=== PATIENT | male | born 1940 | race Two or more races ===

== ENCOUNTER 2023-08-01 11:39 | Inpatient (IN) | payer OTHER ==
[~2023-08-01] VITALS: Ht 167.6 cm; Wt 105.6 kg
[2023-08-01] MEDS ORDERED: SODIUM CHLORIDE 0.9% 500 ML IVB ONE (12:00)
[2023-08-01 12:23] LABS: Basophils # (auto) 0 10 ^3/uL (0-0.2); Basophils % (auto) 0.3 % (0.0-2.0); Eosinophils # (auto) 0 10 ^3/uL (0-0.8); Hematocrit 41.1 % (41.0-53.0); Hemoglobin 13.9 g/dL (13.5-17.5); Lymphocytes # (auto) 0.8 10 ^3/uL (0.4-5.4); Lymphocytes % (auto) 6.2 % (10.0-50.0); Mean Corpuscular Hgb Conc. 33.8 g/dL (32.0-36.0); Mean Corpuscular Volume 91.8 fL (80.0-100.0); Monocytes % (auto) 7.6 % (0.0-12.0); Neutrophils % (auto) 85.9 % (37.0-80.0); Red Blood Cells 4.48 10^6/uL (4.5-5.90); Red Cell Distribution Width 14.4 % (11.8-14.3); White Blood Cell 12.8 10^3/uL (4.4-10.8)
[2023-08-01 12:37] LABS: INR 1.19 (0.9-1.15); Partial Thromboplastin Time 29.6 SEC (24.5-34.5); Prothrombin Time 12.4 sec (9.3-11.8)
[2023-08-01 12:42] LABS: Alanine Aminotransferase 19 U/L (7-40); Albumin 3.8 g/dL (3.2-4.8); Alkaline Phosphatase 89 U/L (46-116); Anion Gap 7 (5-15); Aspartate Aminotransferase 16 U/L (13-40); BUN/Creatinine Ratio 13.3 (10.0-20.0); Blood Urea Nitrogen 13 mg/dL (9-23); Calcium 8.7 mg/dL (8.7-10.4); Carbon Dioxide 25 mmol/L (20-30); Chloride 101 mmol/L (98-107); Glucose 96 mg/dL (74-106); Lipase 38 U/L (12-53); Magnesium 1.8 mg/dL (1.6-2.6); Potassium 4.1 mmol/L (3.5-5.1); Sodium 133 mmol/L (136-145); Total Protein 7.3 g/dL (5.7-8.2)
[2023-08-01] MEDS ORDERED: metroNIDAZOLE 500MG/100ML 100 ML IV ONE (17:15)
[2023-08-01] MEDS ORDERED: KETOROLAC TROMETH 30 MG/ML 1ML VIAL IV ONE (17:15)
[2023-08-01] MEDS ORDERED: SODIUM CHLORIDE 0.9% 1,000 ML IV ONE (17:15)
[2023-08-01] MEDS ORDERED: cefTRIAXone 1GM/50ML D5W 50 ML IV ONE (17:15)
[2023-08-01] MEDS ORDERED: DOCUSATE SOD 100 MG CAP PO PRN (17:15)
[2023-08-01] MEDS ORDERED: FAMO20TA10 PO (17:18)
[2023-08-01] MEDS ORDERED: BENZ100C97 PO (17:18)
[2023-08-01] MEDS ORDERED: NITR100C6 PO (17:18)
[2023-08-01] MEDS ORDERED: ATOR10TA52 PO (17:18)
[2023-08-01] MEDS ORDERED: SILD100T73 PO (17:18)
[2023-08-01] MEDS ORDERED: AMLO1TAB22 PO (17:18)
[2023-08-01] MEDS ORDERED: BENA-36 PO (17:18)
[2023-08-01] MEDS ORDERED: TAMS0.4C36 PO (17:18)
[2023-08-01] MEDS ORDERED: PANTOPRAZOLE 40 MG/10 ML VIAL INJ IV ONE (18:15)
[2023-08-01] MEDS: ACETAMINOPHEN 325 MG TAB PO PRN (21:56)
[2023-08-01] MEDS ORDERED: FAMOTIDINE 20 MG TAB PO SCH (22:00)
[2023-08-02] MEDS: metroNIDAZOLE 500MG/100ML 100 ML IV SCH ×3 (00:43→21:37)
[2023-08-02] MEDS: SODIUM CHLORIDE 0.9% 1,000 ML IV SCH ×2 (01:36→09:55)
[2023-08-02 04:10] VITALS: PULSE 86; RESP 20; O2SAT 93
[2023-08-02] MEDS: MORPHINE SULFATE INJ 2 MG/ml SYRG IV PRN (05:42)
[2023-08-02 06:51] LABS: Alanine Aminotransferase 18 U/L (7-40); Alkaline Phosphatase 101 U/L (46-116); Anion Gap 7 (5-15); Blood Urea Nitrogen 11 mg/dL (9-23); Calcium 8.8 mg/dL (8.7-10.4); Carbon Dioxide 24 mmol/L (20-30); Chloride 103 mmol/L (98-107); Glucose 86 mg/dL (74-106); Potassium 3.8 mmol/L (3.5-5.1); Sodium 134 mmol/L (136-145)
[2023-08-02 06:52] LABS: Albumin 3.9 g/dL (3.2-4.8); Aspartate Aminotransferase 18 U/L (13-40); Bilirubin, Total 0.9 mg/dL (0.2-1.0); Total Protein 8.1 g/dL (5.7-8.2)
[2023-08-02 06:57] LABS: Basophils # (auto) 0 10 ^3/uL (0-0.2); Basophils % (auto) 0.2 % (0.0-2.0); Eosinophils # (auto) 0 10 ^3/uL (0-0.8); Eosinophils % (auto) 0.1 % (0.0-7.0); Hematocrit 42.1 % (41.0-53.0); Hemoglobin 14.2 g/dL (13.5-17.5); Lymphocytes # (auto) 0.9 10 ^3/uL (0.4-5.4); Lymphocytes % (auto) 7.1 % (10.0-50.0); Mean Corpuscular Hemoglobin 30.9 pg (28.0-32.0); Mean Corpuscular Hgb Conc. 33.8 g/dL (32.0-36.0); Mean Corpuscular Volume 91.6 fL (80.0-100.0); Monocytes % (auto) 7.7 % (0.0-12.0); Neutrophils # (auto) 10.5 10 ^3/uL (1.6-8.6); Neutrophils % (auto) 84.9 % (37.0-80.0); Red Cell Distribution Width 14.7 % (11.8-14.3); White Blood Cell 12.4 10^3/uL (4.4-10.8)
[2023-08-02] MEDS: cefTRIAXone 1GM/50ML D5W 50 ML IV SCH (09:00)
[2023-08-02] MEDS: PANTOPRAZOLE 40 MG/10 ML VIAL INJ IV SCH (09:36)
[2023-08-02] MEDS: ATORVASTATIN 20 MG TAB PO SCH (09:37)
[2023-08-02] MEDS: amLODIPine BESYLATE 5 MG TAB PO SCH (09:37)
[2023-08-02] MEDS ORDERED: ENOXAPARIN SOD 40 MG/0.4 ML SYRINGE SC SCH (10:00)
[2023-08-02 10:24] LABS: Urine Bacteria NONE SEEN /hpf (None Seen); Urine Blood Negative /uL (Negative); Urine Clarity Clear (Clear); Urine Color Yellow (Yellow); Urine Protein, UAD TRACE (Negative); Urine Specific Gravity 1.017 (1.001-1.035); Urine Urobilinogen Normal (Negative); Urine WBC 1 /hpf (0 - 3)
[2023-08-02 13:00] VITALS: BP 148/91; PULSE 95; RESP 18; TEMP 97.8; O2SAT 95
[2023-08-02] MEDS ORDERED: MORPHINE SULFATE INJ 2 MG/ml SYRG IV ONE ×2 (15:30→16:00)
[2023-08-02 16:39] VITALS: BP 139/87; PULSE 91; RESP 19; TEMP 98.6; O2SAT 95
[2023-08-02] MEDS: TAMSULOSIN HYDROCHLORIDE 0.4 MG CAP PO SCH (18:00)
[2023-08-02] MEDS: HYDROcodone-ACET 5/325MG TAB PO PRN (21:36)
[2023-08-02 22:00] VITALS: BP 146/89; PULSE 83; RESP 19; TEMP 98.6; O2SAT 99
[2023-08-03] MEDS: SODIUM CHLORIDE 0.9% 1,000 ML IV SCH ×2 (02:35→06:20)
[2023-08-03 05:00] VITALS: BP 109/73; PULSE 93; RESP 19; TEMP 97.9; O2SAT 97
[2023-08-03] MEDS: metroNIDAZOLE 500MG/100ML 100 ML IV SCH ×3 (06:12→22:01)
[2023-08-03 06:19] LABS: Basophils # (auto) 0 10 ^3/uL (0-0.2); Basophils % (auto) 0.2 % (0.0-2.0); Eosinophils # (auto) 0 10 ^3/uL (0-0.8); Eosinophils % (auto) 0.1 % (0.0-7.0); Hematocrit 37.3 % (41.0-53.0); Hemoglobin 12.9 g/dL (13.5-17.5); Lymphocytes # (auto) 0.9 10 ^3/uL (0.4-5.4); Lymphocytes % (auto) 9.6 % (10.0-50.0); Mean Corpuscular Hemoglobin 31.5 pg (28.0-32.0); Mean Corpuscular Hgb Conc. 34.4 g/dL (32.0-36.0); Mean Corpuscular Volume 91.6 fL (80.0-100.0); Monocytes # (auto) 0.7 10 ^3/uL (0-1.3); Monocytes % (auto) 7.8 % (0.0-12.0); Neutrophils # (auto) 7.4 10 ^3/uL (1.6-8.6); Neutrophils % (auto) 82.3 % (37.0-80.0); Red Blood Cells 4.08 10^6/uL (4.5-5.90); Red Cell Distribution Width 14.3 % (11.8-14.3)
[2023-08-03 06:44] LABS: Alanine Aminotransferase 16 U/L (7-40); Albumin 3.3 g/dL (3.2-4.8); Alkaline Phosphatase 100 U/L (46-116); Anion Gap 6 (5-15); BUN/Creatinine Ratio 13.7 (10.0-20.0); Blood Urea Nitrogen 13 mg/dL (9-23); Calcium 8.3 mg/dL (8.7-10.4); Carbon Dioxide 25 mmol/L (20-30); Chloride 104 mmol/L (98-107); Glucose 72 mg/dL (74-106); Lipase 43 U/L (12-53); Magnesium 1.7 mg/dL (1.6-2.6); Potassium 4.1 mmol/L (3.5-5.1); Sodium 135 mmol/L (136-145)
[2023-08-03 06:45] LABS: Aspartate Aminotransferase 15 U/L (13-40); Bilirubin, Total 0.9 mg/dL (0.2-1.0); Total Protein 6.5 g/dL (5.7-8.2)
[2023-08-03 06:49] LABS: INR 1.26 (0.9-1.15); Partial Thromboplastin Time 32.1 SEC (24.5-34.5)
[2023-08-03 07:18] LABS: Cholesterol 98 mg/dL (< 200)
[2023-08-03 07:19] LABS: HDL Cholesterol 33 mg/dL (40-59); LDL Cholesterol 52 mg/dL (< 100); Triglycerides 54 mg/dL (< 150)
[2023-08-03 08:00] VITALS: PULSE 68; RESP 18; O2SAT 96
[2023-08-03 08:46] VITALS: BP 107/72; PULSE 95; RESP 20; TEMP 98.6; O2SAT 97
[2023-08-03] MEDS: PANTOPRAZOLE 40 MG/10 ML VIAL INJ IV SCH (09:34)
[2023-08-03] MEDS: cefTRIAXone 1GM/50ML D5W 50 ML IV SCH (09:34)
[2023-08-03] MEDS: amLODIPine BESYLATE 5 MG TAB PO SCH (09:35)
[2023-08-03] MEDS: MORPHINE SULFATE INJ 2 MG/ml SYRG IV PRN (09:36)
[2023-08-03] MEDS: ATORVASTATIN 20 MG TAB PO SCH (10:00)
[2023-08-03] MEDS ORDERED: ceFAZolin 2 GM/D5W100ml 100 ML IV ONE (13:34)
[2023-08-03] MEDS ORDERED: SUCCINYLCHOLINE CHLORIDE 20 MG/ML 10ML VIAL IV ONE (14:45)
[2023-08-03] MEDS ORDERED: fentaNYL CITRATE 100 MCG/2 ML VL ONE (14:48)
[2023-08-03] MEDS ORDERED: ROCURONIUM 10MG/ML 10ML VIAL IV ONE (15:00)
[2023-08-03] MEDS ORDERED: DexAMETHasone SOD PHOS 10MG/1ML VIAL INJ ONE (15:28)
[2023-08-03] MEDS ORDERED: ONDANSETRON HCL 4 MG/2 ML VIAL ONE (15:28)
[2023-08-03] MEDS ORDERED: SUGAMMADEX 200mg/2ml Vial (100MG/ML) IV ONE (15:42)
[2023-08-03] MEDS ORDERED: ONDANSETRON HCL 4 MG/2 ML VIAL IV PRN ×2 (15:45→16:00)
[2023-08-03] MEDS ORDERED: MIDAZOLAM HCL 2MG/2ML 2ml VIAL (1mg/ml) IV PRN (16:00)
[2023-08-03] MEDS ORDERED: ePHEDrine SULFATE 50 MG/ML AMP IV PRN (16:00)
[2023-08-03] MEDS ORDERED: LABETALOL HCL 5 MG/ML 4ML SYRINGE IV PRN (16:00)
[2023-08-03] MEDS ORDERED: MORPHINE SULFATE 4 MG/ML SYR/VIAL IV PRN (16:00)
[2023-08-03 16:04] VITALS: RESP 17; O2SAT 98
[2023-08-03] MEDS: HYDROmorphone HCL 2 MG/ML VL/or syr IV PRN ×4 (16:15→16:45)
[2023-08-03] MEDS: TAMSULOSIN HYDROCHLORIDE 0.4 MG CAP PO SCH (18:06)
[2023-08-03 22:00] VITALS: BP 104/70; PULSE 89; RESP 16; TEMP 97.7; O2SAT 93
[2023-08-04 05:00] VITALS: BP 100/67; PULSE 81; RESP 16; TEMP 98; O2SAT 95
[2023-08-04 05:20] LABS: Basophils # (auto) 0 10 ^3/uL (0-0.2); Eosinophils # (auto) 0 10 ^3/uL (0-0.8); Hematocrit 37.6 % (41.0-53.0); Lymphocytes # (auto) 0.4 10 ^3/uL (0.4-5.4); Lymphocytes % (auto) 4.3 % (10.0-50.0); Mean Corpuscular Hemoglobin 31.7 pg (28.0-32.0); Mean Corpuscular Hgb Conc. 34.6 g/dL (32.0-36.0); Mean Corpuscular Volume 91.5 fL (80.0-100.0); Monocytes # (auto) 0.2 10 ^3/uL (0-1.3); Monocytes % (auto) 2.6 % (0.0-12.0); Neutrophils # (auto) 7.8 10 ^3/uL (1.6-8.6); Neutrophils % (auto) 93.1 % (37.0-80.0); Red Cell Distribution Width 14.2 % (11.8-14.3); White Blood Cell 8.4 10^3/uL (4.4-10.8)
[2023-08-04 05:39] LABS: Alanine Aminotransferase 32 U/L (7-40); Albumin 3.4 g/dL (3.2-4.8); Alkaline Phosphatase 155 U/L (46-116); Anion Gap 8 (5-15); Aspartate Aminotransferase 42 U/L (13-40); Blood Urea Nitrogen 20 mg/dL (9-23); Calcium 8.3 mg/dL (8.7-10.4); Carbon Dioxide 22 mmol/L (20-30); Chloride 105 mmol/L (98-107); Glucose 115 mg/dL (74-106); Magnesium 1.8 mg/dL (1.6-2.6); Potassium 4.2 mmol/L (3.5-5.1); Sodium 135 mmol/L (136-145)
[2023-08-04 05:40] LABS: Bilirubin, Total 0.5 mg/dL (0.2-1.0); Total Protein 6.8 g/dL (5.7-8.2)
[2023-08-04] MEDS: metroNIDAZOLE 500MG/100ML 100 ML IV SCH ×3 (06:27→20:45)
[2023-08-04 08:00] VITALS: PULSE 72; RESP 18; O2SAT 94
[2023-08-04 08:49] VITALS: BP 103/61; PULSE 72; RESP 20; TEMP 97.7; O2SAT 93
[2023-08-04] MEDS: PANTOPRAZOLE 40 MG/10 ML VIAL INJ IV SCH (09:40)
[2023-08-04] MEDS: cefTRIAXone 1GM/50ML D5W 50 ML IV SCH (09:40)
[2023-08-04] MEDS: amLODIPine BESYLATE 5 MG TAB PO SCH (09:41)
[2023-08-04] MEDS: ATORVASTATIN 20 MG TAB PO SCH (09:41)
[2023-08-04] MEDS: HYDROcodone-ACET 5/325MG TAB PO PRN ×2 (09:42→17:19)
[2023-08-04 12:40] VITALS: BP 80/52; PULSE 84; RESP 20; TEMP 98.3; O2SAT 92
[2023-08-04] MEDS: SODIUM CHLORIDE 0.9% 1,000 ML IV SCH (13:28)
[2023-08-04] MEDS: TAMSULOSIN HYDROCHLORIDE 0.4 MG CAP PO SCH (17:18)
[2023-08-04 19:30] VITALS: PULSE 81; RESP 19; O2SAT 97
[2023-08-04] MEDS: ACETAMINOPHEN 325 MG TAB PO PRN (20:46)
[2023-08-04 22:00] VITALS: BP 128/74; PULSE 68; RESP 14; TEMP 98.5; O2SAT 96
[2023-08-05] MEDS: SODIUM CHLORIDE 0.9% 1,000 ML IV SCH ×2 (04:35→22:04)
[2023-08-05 05:00] VITALS: BP 124/76; PULSE 79; RESP 18; TEMP 98.1; O2SAT 96
[2023-08-05] MEDS: metroNIDAZOLE 500MG/100ML 100 ML IV SCH ×3 (06:00→22:04)
[2023-08-05 07:30] VITALS: BP 103/61; TEMP 36.7
[2023-08-05 07:43] LABS: Basophils # (auto) 0 10 ^3/uL (0-0.2); Basophils % (auto) 0.1 % (0.0-2.0); Eosinophils # (auto) 0 10 ^3/uL (0-0.8); Hematocrit 29.3 % (41.0-53.0); Hemoglobin 9.8 g/dL (13.5-17.5); Lymphocytes # (auto) 0.5 10 ^3/uL (0.4-5.4); Lymphocytes % (auto) 4.9 % (10.0-50.0); Mean Corpuscular Hemoglobin 30.8 pg (28.0-32.0); Mean Corpuscular Hgb Conc. 33.7 g/dL (32.0-36.0); Mean Corpuscular Volume 91.6 fL (80.0-100.0); Monocytes # (auto) 0.4 10 ^3/uL (0-1.3); Neutrophils # (auto) 9.6 10 ^3/uL (1.6-8.6); Red Blood Cells 3.19 10^6/uL (4.5-5.90); Red Cell Distribution Width 14.1 % (11.8-14.3); White Blood Cell 10.5 10^3/uL (4.4-10.8)
[2023-08-05 08:01] LABS: Anion Gap 8 (5-15); Carbon Dioxide 20 mmol/L (20-30); Chloride 111 mmol/L (98-107); Potassium 3.3 mmol/L (3.5-5.1); Sodium 139 mmol/L (136-145)
[2023-08-05 08:02] LABS: Calcium 6.7 mg/dL (8.5-10.1)
[2023-08-05 08:07] LABS: BUN/Creatinine Ratio 19.5 (10.0-20.0); Blood Urea Nitrogen 15 mg/dL (9-23); Glucose 92 mg/dL (74-106)
[2023-08-05 09:00] VITALS: BP 118/64; PULSE 71; RESP 18; TEMP 97.6; O2SAT 98
[2023-08-05] MEDS: cefTRIAXone 1GM/50ML D5W 50 ML IV SCH (09:44)
[2023-08-05] MEDS: PANTOPRAZOLE 40 MG/10 ML VIAL INJ IV SCH (09:44)
[2023-08-05] MEDS ORDERED: POTASSIUM EFFERVESENT TAB 25 MEQ PO ONE (09:45)
[2023-08-05] MEDS: ACETAMINOPHEN 325 MG TAB PO PRN (09:45)
[2023-08-05] MEDS: amLODIPine BESYLATE 5 MG TAB PO SCH (09:45)
[2023-08-05] MEDS: ATORVASTATIN 20 MG TAB PO SCH (09:46)
[2023-08-05 13:00] VITALS: BP 115/70; PULSE 64; RESP 16; TEMP 98.2; O2SAT 97
[2023-08-05 17:00] VITALS: BP 122/68; PULSE 63; RESP 18; TEMP 97.6; O2SAT 99
[2023-08-05] MEDS: TAMSULOSIN HYDROCHLORIDE 0.4 MG CAP PO SCH (17:57)
[2023-08-05 22:00] VITALS: BP 110/74; PULSE 76; RESP 18; TEMP 98.3; O2SAT 97
[2023-08-06 05:00] VITALS: BP 131/85; PULSE 72; RESP 19; TEMP 98.4; O2SAT 97
[2023-08-06 05:49] LABS: Basophils # (auto) 0 10 ^3/uL (0-0.2); Basophils % (auto) 0.2 % (0.0-2.0); Eosinophils # (auto) 0 10 ^3/uL (0-0.8); Eosinophils % (auto) 0.2 % (0.0-7.0); Hematocrit 32.8 % (41.0-53.0); Hemoglobin 11.1 g/dL (13.5-17.5); Lymphocytes # (auto) 1.3 10 ^3/uL (0.4-5.4); Lymphocytes % (auto) 21.9 % (10.0-50.0); Mean Corpuscular Hgb Conc. 33.7 g/dL (32.0-36.0); Mean Corpuscular Volume 91.9 fL (80.0-100.0); Monocytes # (auto) 0.5 10 ^3/uL (0-1.3); Monocytes % (auto) 8.9 % (0.0-12.0); Neutrophils # (auto) 4.1 10 ^3/uL (1.6-8.6); Neutrophils % (auto) 68.8 % (37.0-80.0); Nucleated Red Blood Cells % 0.1 %; Red Blood Cells 3.57 10^6/uL (4.5-5.90); Red Cell Distribution Width 14.8 % (11.8-14.3)
[2023-08-06 06:06] LABS: Anion Gap 5 (5-15); Carbon Dioxide 25 mmol/L (20-30); Chloride 108 mmol/L (98-107); Potassium 4.2 mmol/L (3.5-5.1); Sodium 138 mmol/L (136-145)
[2023-08-06 06:07] LABS: Calcium 8.1 mg/dL (8.7-10.4)
[2023-08-06 06:12] LABS: BUN/Creatinine Ratio 15.4 (10.0-20.0); Blood Urea Nitrogen 12 mg/dL (9-23); Glucose 90 mg/dL (74-106)
[2023-08-06] MEDS: metroNIDAZOLE 500MG/100ML 100 ML IV SCH ×2 (06:28→14:00)
[2023-08-06 07:30] VITALS: BP 118/64; TEMP 36.9
[2023-08-06 08:00] VITALS: PULSE 87; RESP 18; O2SAT 97
[2023-08-06 08:48] VITALS: BP_SYST 116; BP_SYST 138; BP_DIAS 75; BP_DIAS 81; PULSE 52; PULSE 87; RESP 16; RESP 18; TEMP 98.6; O2SAT 97; O2SAT 99
[2023-08-06] MEDS: cefTRIAXone 1GM/50ML D5W 50 ML IV SCH (08:54)
[2023-08-06] MEDS: amLODIPine BESYLATE 5 MG TAB PO SCH (08:57)
[2023-08-06] MEDS: PANTOPRAZOLE 40 MG/10 ML VIAL INJ IV SCH (08:59)
[2023-08-06] MEDS: ATORVASTATIN 20 MG TAB PO SCH (08:59)
[2023-08-06 12:55] VITALS: BP 113/69; PULSE 78; RESP 19; TEMP 98.4; O2SAT 97
[2023-08-06 13:50] VITALS: BP 116/81; TEMP 36.9
[2023-08-06] MEDS: SODIUM CHLORIDE 0.9% 1,000 ML IV SCH (13:55)
[2023-08-06] MEDS ORDERED: ACE3T PO (14:11)
[2023-08-06] MEDS ORDERED: MET500T PO (14:11)
[2023-08-06] MEDS ORDERED: CIPR-173 PO (14:11)
== END 2023-08-06 14:30 | disposition home or self-care (01) | DRG 419 ==
LOC: ER 11:39 → OVERFLOW 17:17 → WEST WING 08-02 11:59
PROVIDERS: ADMIT Internal Medicine Geriatric Medicine; ATTEND Student in an Organized Health Care Education/Training Program
PROC: 0FT44ZZ Resection of Gallbladder, Percutaneous Endoscopic Approach (ICD-10-PCS; principal; 2023-08-03 14:52)
DX: K80.00 Calculus of gallbladder with acute cholecystitis without obstruction (principal); K59.00 Constipation, unspecified; K82.A1 Gangrene of gallbladder in cholecystitis; R14.0 Abdominal distension (gaseous); I10 Essential (primary) hypertension; E78.5 Hyperlipidemia, unspecified; E66.01 Morbid (severe) obesity due to excess calories; K40.20 Bilateral inguinal hernia, without obstruction or gangrene, not specified as recurrent
CPT/HCPCS: 36415; 71045; 74176; 76705; 78226; 80048; 80053; 80061; 81001; 82150; 83690; 83735; 84484; 85025; 85610; 85730; 86850; 86900; 86901; 87040; 87070; 87075; 87077; 87186; 87205; 93005; 93306; 97163; C9113; G0378; J0330; J0696; J1100; J2405; J3490